=== PATIENT | female | born 1995 | race Caucasian/White ===

== ENCOUNTER 2022-07-14 14:09 | Emergency (ER) | payer OTHER ==
[2022-07-14 14:44] LABS: BASOPHILS % (AUTO) 0.5 %; EOSINOPHILS # (AUTO) 0.1 10^3/uL (0.0-0.7); EOSINOPHILS % (AUTO) 1.4 %; HCT - HEMATOCRIT 40.2 % (37.0-47.0); HGB - HEMOGLOBIN 13.3 g/dL (12.0-16.0); LYMPHOCYTES % (AUTO) 22.6 %; MEAN CORPUSCULAR HEMOGLOBIN 29.6 pg (27.0-31.0); MEAN CORPUSCULAR HGB CONC 33.1 g/dL (32.0-36.0); MEAN CORPUSCULAR VOLUME 89.5 fL (81.0-99.0); MEAN PLATELET VOLUME 10.7 fL (7.9-10.8); MONOCYTES # (AUTO) 0.9 10^3/uL (0.0-1.0); MONOCYTES % (AUTO) 10.8 %; NEUTROPHILS # (AUTO) 5.6 10^3/uL (1.5-6.6); NEUTROPHILS % (AUTO) 64.5 %; PLT - PLATELET COUNT 299 10^3/uL (130-450); RED BLOOD COUNT 4.49 10^6/uL (4.20-5.40); RED CELL DISTRIBUTION WIDTH 12.6 % (12.0-15.0); WHITE BLOOD COUNT 8.6 x10^3/uL (4.8-10.8)
[2022-07-14 14:56] LABS: ALBUMIN 4.1 g/dL (3.2-5.5); ALBUMIN/GLOBULIN RATIO 1.1 (1.0-2.2); BILIRUBIN,TOTAL 0.4 mg/dL (0.2-1.0); CREATININE 0.7 mg/dL (0.4-1.0); POTASSIUM 3.7 mmol/L (3.5-5.0); TOTAL PROTEIN 7.7 g/dL (6.7-8.2)
--- NOTE | 2022-07-14 14:58 | ED Physician Documentation ---
History of Present Illness - Stated complaint Stated Complaint: FEMALE - Chief complaint Chief Complaint: Abd Pain - Additonal information Additional information: 26-year-old female presents to the emergency department for evaluation of rectal pain. Patient reports that about 2 years ago she began having rectal pain with defecation. She went from having daily bowel movements to every 3 days defecating. She reports that they were incredibly painful and sometimes bloody. She began to abstain from gluten and found that that the symptoms improved for short period of time. However when she accidentally has gluten exposure the symptoms suddenly worsen. Over the last few weeks the pain has become unbearable. She reports it takes her nearly an hour to defecate. The initial stool is very hard following by softer looser stools that are often bloody. She is scheduled to have a scope screening colonoscopy after the first of the year but does not feel that she can wait given the worsening symptoms. There have been no fevers, night sweats or weight loss. She is using Preparation H without resolution of symptoms. Review of Systems Constitutional: denies: Fever, Chills Throat: reports: Reviewed and negative Cardiac: reports: Reviewed and negative Respiratory: reports: Reviewed and negative GI: reports: Bloody / black stool, Other (Rectal pain) : reports: Reviewed and negative Skin: reports: Reviewed and negative Musculoskeletal: reports: Reviewed and negative PD PAST MEDICAL HISTORY - Allergies Allergies/Adverse Reactions: Allergies Allergy/AdvReac Type Severity Reaction Status Date / Time No Known Drug Allergies Allergy Verified 07/14/22 14:26 PD ED PE NORMAL - General General: Alert and oriented X 3. No: No acute distress (Crying, tearful) - Neck Neck: Supple, no meningeal sign, No adenopathy - Cardiac Cardiac: RRR, No murmur - Respiratory Respiratory: No respiratory distress - Abdomen Abdomen: Normal bowel sounds, Soft - Rectal Rectal: Other (No perirectal tenderness elicited. Patient however would not tolerate digital rectal exam.) - Back Back: No CVA TTP - Derm Derm: Normal color, Warm and dry - Extremities Extremities: No deformity, No tenderness to palpate, Normal ROM s pain - Neuro Neuro: Alert and oriented X 3, pharmaceutical sales 2-12 intact Eye Opening: Spontaneous Motor: Obeys Commands Verbal: Oriented GCS Score: 15 Results - Vitals Vitals: Vital Signs - 24 hr 07/14/22 07/14/22 14:22 15:00 Temperature 36.8 C Heart Rate 89 81 Respiratory 14 18 Rate Blood Pressure 149/87 H 144/90 H O2 Saturation 99 98 Oxygen O2 Source Room air - Labs Labs: Laboratory Tests 07/14/22 07/14/22 07/14/22 14:39 14:39 14:39 WBC 8.6 RBC 4.49 Hgb 13.3 Hct 40.2 MCV 89.5 MCH 29.6 MCHC 33.1 RDW 12.6 Plt Count 299 MPV 10.7 Neut # (Auto) 5.6 Lymph # (Auto) 2.0 Loup # (Auto) 0.9 Eos # (Auto) 0.1 Baso # (Auto) 0.0 Absolute Nucleated RBC 0.00 Nucleated RBC % 0.0 Sodium 138 Potassium 3.7 Chloride 107 Carbon Dioxide 23 Anion Gap 8.0 BUN 10 Creatinine 0.7 Estimated GFR (MDRD) 101 Glucose 97 Calcium 9.0 Total Bilirubin 0.4 AST 21 ALT 17 Alkaline Phosphatase 85 Total Protein 7.7 Albumin 4.1 Globulin 3.6 Albumin/Globulin Ratio 1.1 Lipase 33 Serum HCG, Qual NEGATIVE Urine Color Urine Clarity Urine pH Ur Specific [place] Urine Protein Urine Glucose (UA) Urine Ketones Urine Occult Blood Urine Nitrite Urine Bilirubin Urine Urobilinogen Ur Leukocyte Esterase Ur Microscopic Review Urine Culture Comments 07/14/22 14:51 WBC RBC Hgb Hct MCV MCH MCHC RDW Plt Count MPV Neut # (Auto) Lymph # (Auto) [place] # (Auto) Eos # (Auto) Baso # (Auto) Absolute Nucleated RBC Nucleated RBC % Sodium Potassium Chloride Carbon Dioxide Anion Gap BUN Creatinine Estimated GFR (MDRD) Glucose Calcium Total Bilirubin AST ALT Alkaline Phosphatase Total Protein Albumin Globulin Albumin/Globulin Ratio Lipase Serum HCG, Qual Urine Color YELLOW Urine Clarity CLEAR Urine pH 6.0 Ur Specific [place] <=1.005 Urine Protein NEGATIVE Urine Glucose (UA) NEGATIVE Urine Ketones NEGATIVE Urine Occult Blood NEGATIVE Urine Nitrite NEGATIVE Urine Bilirubin NEGATIVE Urine Urobilinogen 0.2 (NORMAL) Ur Leukocyte Esterase NEGATIVE Ur Microscopic Review NOT INDICATED Urine Culture Comments NOT INDICATED - Rads (name of study) CT abd Radiology: Final report received (To moderate constipation. No bowel obstruction or gross abnormal bowel wall thickening. No free fluid or free air. Normal appendix.) PD MEDICAL DECISION MAKING - ED course Complexity details: reviewed results, re-evaluated patient, d/w patient ED course: 26-year-old female presents emergency department for evaluation 3 weeks of worsening rectal pain. This is in the setting of now intermittent constipation that began about 2 years ago. She is typically having bowel movements every 3 days. The initiation of the bowel movement often takes up to an hour is exquisitely painful. The initial stool is very hard followed by softer looser stools. She is scheduled to have a colonoscopy after the first of the year. On presentation to the emergency department she is tearful but no abdominal pain was elicited. She had too much rectal pain to allow exam. Her labs today were without acute worrisome findings including the CBC and electrolytes. Given the duration of the symptoms and the reported constipation as well as rectal bleeding a CT of the abdomen was completed. No acute worrisome findings were seen though there is constipation noted. Given this finding I am recommending the patient's start a course of MiraLAX. Once she has 3-4 adequate watery stools she is advised to increase fiber supplementation with Colace. She will continue to follow-up with her primary care doctor as well as referral for colonoscopy. Worrisome emergent return precautions discussed Departure - Departure Disposition: Home, Self Care Clinical Impression: Rectal pain, chronic Constipation Qualifiers: Constipation type: other constipation type Qualified Code(s): K59.09 - Other constipation Condition: Stable Record reviewed to determine appropriate education?: Yes Comments: Cherelle you are seen today in the emergency department because You have been having rectal pain for quite some time with changes in the frequency of your bowel movements. Today your screening labs were essentially normal. We did do a CT of the abdomen. The only finding with the CT is that you do have a large amount of stool burden within your colon that is consistent with constipation. In order to treat the constipation I would like you to take MiraLAX 1 capful in 8 ounces of water twice daily until you have 3 or 4 watery bowel movements. Once the stool burden in your colon has been addressed it is important to increase your fiber intake as well as start taking a stool softener such as Colace 100 mg twice daily. Please discuss this ED visit with your primary care providers. If this Treatment does not improve your symptoms you may continue to benefit from the colonoscopy. Return to the emergency department for fevers or any fainting episodes or severe abdominal pain
[2022-07-14 15:01] VITALS: BP 144/90
[2022-07-14 15:05] LABS: BILIRUBIN,URINE NEGATIVE (NEGATIVE); GLUCOSE, URINE (UA) NEGATIVE (NEGATIVE); KETONES,URINE (UA) NEGATIVE (NEGATIVE); LEUKOCYTE ESTERASE, URINE NEGATIVE (NEGATIVE); NITRITE,URINE NEGATIVE (NEGATIVE); OCCULT BLOOD,URINE NEGATIVE (NEGATIVE); PROTEIN,URINE NEGATIVE (NEGATIVE); UROBILINOGEN,URINE 0.2 (NORMAL) E.U./dL (NORMAL)
[2022-07-14 15:10] LABS: CLARITY,URINE CLEAR (CLEAR)
[2022-07-14 15:23] LABS: HCG,QUALITATIVE BLOOD NEGATIVE
--- NOTE | 2022-07-14 15:31 | CT Report ---
PROCEDURE: Abdomen/Pelvis WO INDICATIONS: rectal pain, constipation TECHNIQUE: Noncontrast 5 mm thick sections acquired from the diaphragms to the symphysis. 5 mm coronal and sagi ttal reformats were then performed. For radiation dose reduction, the following was used: automated exposure control, adjustment of mA and/or kV according to patient size. COMPARISON: None. FINDINGS: Image quality: Excellent. ABDOMEN: Lung bases: Lung bases are clear. Heart size is normal. Solid organs: Liver and spleen are normal in size. Gallbladder is within normal limits. Pancreas i s normal in contours. No adrenal nodules. Kidneys are normal in size, without hydronephrosis or nep hrolithiasis. Peritoneum and bowel: Unenhanced bowel loops demonstrate normal wall thickness and caliber. No free fluid or air. Significant fecal stasis throughout the colon is seen extending to rectum suggestive of mild to moderate constipation. Appendix is visualized in right lower quadrant abdomen and is withi n normal limits. Nodes and vessels: No retroperitoneal or mesenteric adenopathy by size criteria. Aorta and inferior vena cava are normal in caliber. Miscellaneous: No ventral hernias. PELVIS: Genitourinary: Bladder wall thickness is normal. Miscellaneous: No inguinal hernias or adenopathy. Bones: No suspicious bony lesions. No vertebral body compression fractures. IMPRESSION: 1. Mild to moderate constipation. No bowel obstruction or gross abnormal bowel wall thickening. No fr ee fluid of free air. Normal appendix. Reviewed by: Jordin Santos MD on 07/14/2022 3:30 PM PDT Approved by: Jordin Santos MD on 07/14/2022 3:30 PM PDT Station ID: [id number]
== END 2022-07-14 16:21 | disposition home or self-care (01) ==
LOC: ED 14:09
DX: K62.89 Other specified diseases of anus and rectum (principal); G89.29 Other chronic pain; K59.09 Other constipation
CPT/HCPCS: 36415; 80053; 81001; 81003; 83690; 84703; 85025; 87086; 99284

== ENCOUNTER 2024-04-03 01:10 | Emergency (ER) | payer OTHER ==
[2024-04-03 01:18] VITALS: O2SAT 98
--- NOTE | 2024-04-03 02:12 | ED Physician Documentation ---
History of Present Illness - Stated complaint Stated Complaint: VISUAL DISTURBANCE - Chief complaint Chief Complaint: Heent - History obtained from History obtained from: Patient - Additonal information Additional information: HPI from patient. Patient was at work tonight when she had rapid onset of anxiety, feeling of impending doom (per patient) which she says is c/w previous panic attacks. She t ook a dose of her prescribed hydroxyzine (PRN for these panic attacks). She had improvement in her anxiety but developed left eye visual changes and RUE paresthesias. Denies h/o similar symptoms (visual changes, paresthesias), including with previous doses of hydroxyzine. The visual changes were limited to the left eye. She describes wavy lines in upper visual field that were multicolored and pulsating. She also noted lower visual field deficit; she became aware that as she moved her hand around her peripheral visual vasquez, she could not see her hand as it passed through the lower field of vision (left eye only). Her symptoms have nearly resolved by the time of this H+P including the visual changes. The RUE paresthesias are still present albeit improved. On ROS, she notes mild generalized GORMAN. She has h/o migraines but her migraines are typically significantly worse in severity and never associated with any of tonight's symptoms. Denies weakness, numbness, AMS PD PAST MEDICAL HISTORY - Past Medical History Past Medical History: Yes Psych: Anxiety - Past Surgical History Past Surgical History: No - Present Medications Home Medications: Ambulatory Orders Medication Instructions Recorded Confirmed hydrOXYzine PAMOATE [Vistaril] 25 mg PO BID PRN 04/03/24 04/03/24 - Allergies Allergies/Adverse Reactions: Allergies Allergy/AdvReac Type Severity Reaction Status Date / Time No Known Drug Allergies Allergy Verified 04/03/24 01:18 - Social History Does the pt smoke?: No Smoking Status: Never smoker Does the pt drink ETOH?: Yes Does the pt have substance abuse?: No - Immunizations Immunizations are current?: Yes - POLST Patient has POLST: No PD ED PE NORMAL - Vitals Vital signs reviewed: Yes - General General: Alert and oriented X 3, No acute distress, Well developed/nourished - HEENT HEENT: PERRL, EOMI - Neck Neck: Supple, no meningeal sign - Cardiac Cardiac: RRR, No murmur - Respiratory Respiratory: No respiratory distress, Clear bilaterally - Neuro Neuro: Alert and oriented X 3, ground layer 2-12 intact, No motor deficit, No sensory deficit, Normal speech, Other (no visual field deficit (OS)) Eye Opening: Spontaneous Motor: Obeys Commands Verbal: Oriented GCS Score: 15 Results - Vitals Vitals: Vital Signs - 24 hr 04/03/24 05:08 Heart Rate 88 Respiratory 16 Rate Blood Pressure 135/98 H O2 Saturation 98 Oxygen O2 Source Room air - Rads (name of study) CTH Relevant Findings:: Prelim report reviewed, See rad report PD Medical Decision Making - ED course Complexity details: reviewed results, re-evaluated patient, considered differential, d/w patient ED course: Unremarkable CTH. Patient's description of symptoms are c/w migraine variant (occular migraine), particularly the description of multi-colored pulsating wavy lines in her peripheral visual field. Result of CTH d/w patient, suspected diagnosis reviewed. I explained that this is strictly a suspected/provisional diagnosis, and that she needs to seek follow up with PCP for reevaluation (next available appointment) and possible referral to neurology Departure - Departure Disposition: 01 Home, Self Care Clinical Impression: Ocular migraine Condition: Good Instructions: ED Headache Migraine Comments: Your description of symptoms is suggestive of a migraine variant called ocular migraine. As we discussed, the headache associated with migraine variants is not always as severe as a classic migraine headache; for some patients, there is no headache and only symptoms consistent with migraine aura. Particularly suggestive of a migraine variant in your case is her description of multi- colored lines in your field of vision. There were no abnormalities on the CT scan of your head performed tonight. Nonetheless, I recommend that you contact your primary care provider's office when they open later this morning to arrange for the next available appointment for follow-up/reevaluation. Discharge Date/Time: 04/03/24 05:09
[2024-04-03 05:10] VITALS: BP 135/98
--- NOTE | 2024-04-03 08:39 | CT Report ---
PROCEDURE: Head WO INDICATIONS: visual changes, RUE paresthesias TECHNIQUE: Noncontrast 4.5 mm thick angled axial sections acquired from the foramen magnum to the vertex. For r adiation dose reduction, the following was used: automated exposure control, adjustment of mA and/or kV according to patient size. COMPARISON: None. FINDINGS: Image quality: Excellent. CSF spaces: Basal cisterns are patent. No extra-axial fluid collections. Ventricles are normal in size and shape. Brain: No midline shift. No intracranial masses or hemorrhage. Caceres-white matter interface is norm al. Skull and face: Calvarium and visualized facial bones are intact, without suspicious lesions. Sinuses: Visualized sinuses and mastoids are clear. IMPRESSION: No acute intracranial pathology. Findings are concordant with preliminary interpretation provided by [facility]. Reviewed by: Jordin Santos MD on 04/03/2024 8:37 AM PDT Approved by: Jordin Santos MD on 04/03/2024 8:37 AM PDT Station ID: [id number]
== END 2024-04-03 05:09 | disposition home or self-care (01) ==
LOC: ED 01:10
DX: G43.809 Other migraine, not intractable, without status migrainosus (principal)
CPT/HCPCS: 99283; 99284

== ENCOUNTER 2024-05-30 14:43 | Outpatient (CLI) | payer OTHER ==
--- NOTE | 2024-05-30 20:55 | Ultrasound Report ---
PROCEDURE: Soft Tissue Head or Neck INDICATIONS: HYPOTHYROIDISM TECHNIQUE: Real-time scanning was performed of the thyroid gland, with image documentation. COMPARISON: None FINDINGS: Right: Thyroid lobe measures 4.9 x 1.7 x 1.5 cm. Left: Thyroid lobe measures 4.2 x 1.4 x 1.4 cm Isthmus: 0.5 cm thick. Echotexture: Heterogeneous. IMPRESSION: Heterogeneous appearance of the thyroid gland without distinct nodule. Recommend correla tion with thyroid function tests. Reviewed by: He Herman MD on 05/30/2024 8:54 PM PDT Approved by: He Herman MD on 05/30/2024 8:54 PM PDT Station ID: [id number] [id number] - [id number]
== END 2024-05-30 14:44 | disposition home or self-care (01) ==
LOC: DI 14:43
PROVIDERS: ATTEND Student in an Organized Health Care Education/Training Program
DX: E03.9 Hypothyroidism, unspecified (principal)